=== PATIENT | female | born 1995 | race Caucasian/White ===

== ENCOUNTER 2017-10-02 03:02 | Emergency (ER) | payer OTHER ==
[2017-10-02 03:56] VITALS: BMI 22.1
[2017-10-02 04:22] LABS: SQUAMOUS EPITHIAL 33 /hpf (0-5); URINE BACTERIA MANY (<OCC); URINE BILIRUBIN NEGATIVE (NEGATIVE); URINE BLOOD LARGE (NEGATIVE); URINE CLARITY TURBID (Clear); URINE COLOR RED (YELLOW); URINE GLUCOSE (UA) NEG (Normal); URINE LEUKOCYTE ESTERASE MOD Leu/uL (Negative); URINE NITRATE NEGATIVE (NEGATIVE); URINE PROTEIN 100 mg/dL (NEGATIVE); URINE UROBILINOGEN 0.2-1.0 mg/dL (0.2-1.0); WBC CLUMPS OCC /hpf
--- NOTE | 2017-10-02 08:38 | OBDCSUM ---
Datetime: 10/02/2017 04:50 Discharged to, Provider: Home Follow up at, Provider: Dr. Greene Disch Instr Activity: Normal activity Disch Instr Diet: Regular Discharge Instructions, Provider: Routine instructions given Discharge Time: 10/02/2017 04:50 Follow up in weeks, Provider: Call office to make earlier appt. Disch Referrals: None Contraception discussed, Prov: Yes Discharge Diagnosis Prov Other: UTI
--- NOTE | 2017-10-02 08:38 | OBHP ---
Datetime: 10/02/2017 03:56 IP Adm Impression: , intrauterine ; No Active Labor IP Chief Complaint Other: hematuria IP Admit Plan: Observation/Evaluation; Discharge home Admit Comment, IP Provider: 21 yo at 32.6 weeks GA, DOMINGO 11/21/17 presents to [facility] w/ c/o chadwick turia about 2 hours ago. Pt reports she saw lots of blood with urine. Denies seeing any blood clots. Denies abdominal trauma. Last coitus 2 days ago. Reports +FM. Denies LOF or CTX. Has hx UTI during th is . Denies dysuria, urinary frequency, nausea, vomiting, fever, chills or flank pain. PNC: Dr. Ramona Guzman PMHX: Iron deficiency anemia PSHX: Denies Medications: iron, PNV Social hx: Denies smoking cigarettes, drinking EtOH or using drugs Family hx: denies DMII or CAD Allergies: NKDA Assessment: 21 yo IUP @ 32.6 weeks GA presents with hematuria. Plan: Continuous heart tracing UA re-evaluate UA shows nitrate: negative, protein: 100, blood: large, leukocytes: moderate, rbc: 439, wbc: occ, microscopic WBC: 61, squamous epith cells: 33, urine bacteria: many Pt will be treated for UTI with macrbid 100 mg po bid X 7 days. Urine c_s sent. Pt was advised to f/u or call Dr. Greene's clinic in 1-2 days and informed about being treated for UTI and repeat UA and urine C_S. Pt verbalizes the understanding and in agreement with the plan. ED precaution given. Case d/w on-call OB hospitalist Dr. Chris Wright, PGY-[address] Perez: Patient evaluated indepently and I agree with the above Extremities - PN: Normal Abdomen - PN: Normal Back - PN: Normal Lungs - PN: Normal Heart - PN: Normal Neurologic - PN: Normal HEENT - PN: Normal General - PN: Normal FHR - Baseline A Provider: 130's EGA AdmitDate IP: 32.6 Vital Signs Provider: Reviewed IP Chief Complaint: Other NICHD Variability Prov Fetus A: Moderate 6-25bpm NICHD Accel Fetus A IP Provider: 10X10 FHR Category Provider Fetus A: Category I
[2017-10-02 09:41] VITALS: BP 138/85; PULSE 113
== END 2017-10-02 04:51 | disposition home or self-care (01) ==
LOC: H.EROB2 03:02
DX: O23.43 Unspecified infection of urinary tract in pregnancy, third trimester (principal); Z3A.32 32 weeks gestation of pregnancy

== ENCOUNTER 2017-11-11 14:20 | Inpatient (IN) | payer BC ==
[2017-11-11 14:33] VITALS: BMI 23.3
[2017-11-11] MEDS ORDERED: Penicillin G Potassium 5 MU in Sodium Chloride 0.9% 50 ML IVPB ONE (14:37)
[2017-11-11] MEDS ORDERED: Lactated Ringer's 1,000 ML IV SCH ×2 (14:45)
[2017-11-11] MEDS ORDERED: Oxytocin 30 units/LR 500ML 30 U/500 ML BAG IV SCH (14:45)
[2017-11-11] MEDS ORDERED: Penicillin G 5 Million Unit Vial IVPB ONE (15:02)
--- NOTE | 2017-11-11 15:13 | OBHP ---
Datetime: 11/11/2017 14:39 IP Adm Impression: Term, intrauterine IP Admit Plan: Admit to unit; Initiate labor protocol Admit Comment, IP Provider: 21 yo at 38+1 w/ EDC 11/24/2017 by 8+ wk u/s, presents w/ painfu l ctxns that started at 12:30 pm, denies VB, LOF and reports FM. Pt received her prental care w/ Car epoint w Dr. Greene. 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13 , reg periods, denies STDs, abn paps POB hx: 2012 VD male, 8#2.9 2015 TAB PE: AFVSS Gen'l: pt appears in a lot of pain Heart: RRR Chest: lungs CTA b/l Abd: soft, NT, gravid Ext: NT, no edema VE: 4/80/-2 at 2:20pm A/P: 21 yo at 38+1 wks in labor, desires an epidural Pt admitted to L_D FHT reassuring, GBS positive, Penicillin ordered for GBS prohylaxis Extremities - PN: Normal Abdomen - PN: Normal Back - PN: Normal Lungs - PN: Normal Heart - PN: Normal Neurologic - PN: Normal General - PN: Normal FHR - Baseline A Provider: 130's Membranes, Provider: Intact Contraction Comments Provider: Q2 EGA AdmitDate IP: 38.4 Vital Signs Provider: Reviewed IP Chief Complaint: Uterine contractions NICHD Variability Prov Fetus A: Moderate 6-25bpm NICHD Accel Fetus A IP Provider: 15X15 FHR Category Provider Fetus A: Category I NICHD Decel Fetus A IP Provider: None Dilatation, Provider: 4 Effacement, Provider: 80 Station, Provider: -2 Genitourinary Exam: Normal
[2017-11-11] MEDS ORDERED: Lidocaine 2% Inj (20ml) ONE (15:21)
[2017-11-11] MEDS ORDERED: Oxycodone/Acetaminophen 5/325 mg Tab PO PRN ×3 (15:38→18:54)
--- NOTE | 2017-11-11 15:45 | OBDS ---
MATERNAL INFORMATION Provider Comments: Pt progressed to complete. AROM for clear fluid at 15:21. Pt pushed to deliver a viable female through clear fluid at 15:23. Nuchal cord x 1 reduced. Apgars 9 and 9. Wt 3420gms, 7#8.6. Mouth and nares bulb-suctioned. placed on mother's abdomen. Cord doubly clamped and FOB cut the cord. Cord blood collected. Placenta delivered spontaneously w/ a 3vc at 15:30. Right periurthral tear reapproximated w/ 3 interrupted stitches on 3-0 rapide. Pt and baby tolerated proce dure well. EBL: 250mL LABOR SUMMARY EDC: 11/21/2017 00:00 BABY A INFORMATION Delivery Date/Time: 11/11/2017 15:23 Method of Delivery: Vaginal Born in Route : No : N/A Forceps: N/A Vacuum Extraction: N/A SHOULDER DYSTOCIA BABY A Delivery Date/Time: 11/11/2017 15:23 PRESENTATION/POSITION BABY A Presentation: Cephalic INFORMATION BABY A Gestational Age at Delivery: 38.0 Gestational Status: Term Outcome : Liveborn Condition : Stable Sex: Female CORD INFORMATION BABY A No. Cord Vessels: 3 (Annotations: Data stored by N on behalf of user) Nuchal Cord : Around Neck x1, Loose
[2017-11-11 16:20] LABS: BASO # 0.1 K/uL (0.0-0.2); BASO % 0.6 % (0.0-2.0); EOS % 0.4 % (0.0-4.0); HEMOGLOBIN 11.4 g/dL (12.0-16.0); LYMPH # 1.8 K/uL (1.0-4.3); LYMPH % 20.3 % (20.0-40.0); MEAN CELL VOLUME 87.9 fl (81.0-99.0); MEAN CORPUSCULAR HGB CONC 34.2 g/dL (33.0-37.0); MEAN PLATELET VOLUME 8.6 fl (7.2-11.7); MONO # 0.5 K/uL (0.0-0.8); MONO % 5.5 % (0.0-10.0); NEUT # 6.6 K/uL (1.8-7.0); NEUT % 73.2 % (50.0-75.0); RBC 3.8 Mil/uL (3.80-5.20); RED CELL DISTRIBUTION WIDTH 13.7 % (11.5-14.5)
--- NOTE | 2017-11-11 16:26 | OBADHP ---
Datetime: 11/11/2017 16:23 Back - PN: Normal Lungs - PN: Normal Heart - PN: Normal Neurologic - PN: Normal General - PN: Normal FHR - Baseline A Provider: 130's Contraction Comments Provider: Q2 Vital Signs Provider: Reviewed IP Chief Complaint: Uterine contractions NICHD Variability Prov Fetus A: Moderate 6-25bpm NICHD Accel Fetus A IP Provider: 15X15 FHR Category Provider Fetus A: Category I NICHD Decel Fetus A IP Provider: None Dilatation, Provider: 4 Effacement, Provider: 80 Station, Provider: -2 EGA AdmitDate IP: 38.4 IP Adm Impression: Term, intrauterine IP Admit Plan: Initiate labor protocol Datetime: 11/11/2017 14:39 Admit Comment, IP Provider: 21 yo at 38+1 w/ EDC 11/24/2017 by 8+ wk u/s, presents w/ painfu l ctxns that started at 12:30 pm, denies VB, LOF and reports FM. Pt received her prental care w/ Car epoint w Dr. Greene. 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
--- NOTE | 2017-11-11 16:28 | OBADHP ---
Datetime: 11/11/2017 16:23 Admit Comment, IP Provider: A/P: 21 yo at 38+1 wks in labor, desires an epidural Pt admitted to L_D FHT reassuring, GBS positive, Penicillin ordered for GBS prohylaxis H_P dictated, " [id number]" EGA AdmitDate IP: 38.4
[2017-11-11] MEDS: Oxycodone/Acetaminophen 5/325 mg Tab PO PRN (19:22)
[2017-11-11] MEDS ORDERED: Benzocaine/Menthol SPRAY TOP PRN (21:16)
[2017-11-12] MEDS: Oxycodone/Acetaminophen 5/325 mg Tab PO PRN ×4 (00:57→23:20)
--- NOTE | 2017-11-12 01:21 | HP ---
HISTORY OF PRESENT ILLNESS: This is a 21-year-old G3, P1-0-1-1, at 38 weeks and one day with an EDC of 11/24/2017 by 8 plus week ultrasound who presents with painful contractions that started at 12:30 p.m. Denies leaking of fluid. Denies vaginal bleeding. The patient has received her care with Dr. Greene at [facility]. She is varicella nonimmune, there was bilateral pyelectasis. There was a renal cyst that has since resolved and mild anemia complicating this . On 11/01/2017, her GBS was positive. PAST MEDICAL HISTORY: Healthy. PAST SURGICAL HISTORY: None. MEDICATIONS: vitamins. ALLERGIES: NO KNOWN DRUG ALLERGIES. FAMILY HISTORY: Noncontributory. SOCIAL HISTORY: Negative x3. GYNECOLOGIC HISTORY: Menarche at 13, regular periods. The patient denies any STDs or any abnormal Pap smears. PAST OBSTETRIC HISTORY: Vaginal delivery in 2012, male infant, weighing 8 pounds 2.9 ounces, and termination of in 2014. PHYSICAL EXAMINATION: VITAL SIGNS: Afebrile. Vital signs are stable. GENERAL: The patient appears in a lot of pain. HEART: Regular rate and rhythm. LUNGS: Clear to auscultation bilaterally. EXTREMITIES: Nontender. No edema. VAGINAL: 4, 80% effaced, and -2 station at 02:20 p.m. LABS: On 08/14/2017; her one-hour Glucola was 138. RPR was nonreactive. HIV was nonreactive. On 11/01/2017; her GBS was positive. On 06/10/2017; MSAFP screen negative. Her Panorama was low risk female fetus. Her first trimester screen was within range. ASSESSMENT AND PLAN: This is a 21-year-old G3, P1-0-1-1 at 38 weeks and one day in labor. The patient desires an epidural. heart tracing is reassuring. 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 Penicillin ordered for Guillain-Santa [place] syndrome prophylaxis. On 04/18/2017, her SMN1 copy number 2 reduced carrier risk. Her hemoglobin electrophoresis was normal. Her blood type A positive. Rubella immune. Varicella zoster IgG was 143, which is equivocal. HIV was nonreactive. RPR nonreactive. Antibody screen negative. Hepatitis B surface antigen negative. Urine culture was negative. Her fragile X, which was done on 04/18/2017 was negative. Cystic fibrosis was negative and her Pap smear was negative. Ole Markham MD
--- NOTE | 2017-11-12 08:56 | OBPPN ---
Datetime: 11/12/2017 08:52 PP Pain Prov: Within normal limits PP Nausea Prov: Denies PP Flatus Prov: Yes PP Breasts Prov: Not Done PP Heart Prov: Normal PP Lungs Prov: Normal PP Abdomen/Uterus Prov: Normal PP Lochia Prov: Not Done PP Vulva/Perineum Prov: Not Done PP CVA Tenderness Prov: Normal PP Extremities Prov: Normal PP Impression Prov: Normal progression PP Progress Note Prov: Doing well w/o complaints vss afebrile uterus firm below umbilicus ext no homans PPD1 oobtc, regualr diet, motrin anticipate d/c in am Vital Signs Provider PP: Reviewed
[2017-11-12 09:51] LABS: HEMOGLOBIN 9.9 g/dL (12.0-16.0); MEAN CELL VOLUME 89.9 fl (81.0-99.0); MEAN CORPUSCULAR HEMOGLOBIN 30.5 pg (27.0-31.0); RBC 3.25 Mil/uL (3.80-5.20); RED CELL DISTRIBUTION WIDTH 14.1 % (11.5-14.5); WHITE BLOOD COUNT 11.5 K/uL (4.8-10.8)
--- NOTE | 2017-11-13 10:13 | OBDCSUM ---
Datetime: 11/13/2017 10:12 Discharged to, Provider: Home Follow up at, Provider: OB Discharge Diagnosis, Provider: Term Delivered Discharge Time: 11/13/2017 10:12 Follow up in weeks, Provider: 6 wks
--- NOTE | 2017-11-13 10:14 | OBPPN ---
Datetime: 11/13/2017 10:11 PP Pain Prov: Within normal limits PP Nausea Prov: Denies PP Flatus Prov: Yes PP Breasts Prov: Normal PP Heart Prov: Normal PP Lungs Prov: Normal PP Abdomen/Uterus Prov: Normal PP Lochia Prov: Normal PP Vulva/Perineum Prov: Normal PP CVA Tenderness Prov: Normal PP Extremities Prov: Normal PP Comments Phys Exam Prov: Fundus firm under umbilicus PP Impression Prov: Normal progression PP Plan Prov: Continue present management PP Progress Note Prov: Patient denies CP, no SOB, no N/V, tolerating PO diet, ambulating/voiding wel l, mild lochia, abdominal pain tolerable with meds A/P 1. Patient ready for discharge, discharge instructions reviewed IP PP Procedures: None Vital Signs Provider PP: Reviewed; Within Normal Limits
[2017-11-13 19:20] VITALS: BP 100/74; PULSE 87; RESP 20; TEMP 97.8; O2SAT 99
== END 2017-11-13 15:18 | disposition home or self-care (01) | DRG 775 ==
LOC: H.EROB2 14:20 → H.L&D 14:33 → H.OB/GYN 18:00
PROVIDERS: ADMIT Obstetrics & Gynecology; ATTEND Obstetrics & Gynecology
PROC: 10E0XZZ Delivery of Products of Conception, External Approach (ICD-10-PCS; principal; 2017-11-11)
PROC: 0UQMXZZ Repair Vulva, External Approach (ICD-10-PCS; 2017-11-11)
PROC: 10907ZC Drainage of Amniotic Fluid, Therapeutic from Products of Conception, Via Natural or Artificial Opening (ICD-10-PCS; 2017-11-11)
PROC: 4A1HXCZ Monitoring of Products of Conception, Cardiac Rate, External Approach (ICD-10-PCS; 2017-11-11)
DX: O69.81X0 Labor and delivery complicated by cord around neck, without compression, not applicable or unspecified (principal); O71.82 Other specified trauma to perineum and vulva; O35.8XX0 Maternal care for other (suspected) fetal abnormality and damage, not applicable or unspecified; O99.824 Streptococcus B carrier state complicating childbirth; G61.0 Guillain-Barre syndrome; O75.89 Other specified complications of labor and delivery; Z37.0 Single live birth; Z3A.38 38 weeks gestation of pregnancy